=== PATIENT | male | born 1955 | race Caucasian/White ===

== ENCOUNTER 2017-05-03 21:23 | Emergency (ER) | payer OTHER ==
[~2017-05-03] VITALS: Ht 175.3 cm; Wt 105.3 kg
[2017-05-03 22:34] LABS: ASPARTATE AMINO TRANSFERASE 18 U/L (15-37); BLOOD UREA NITROGEN 14 mg/dL (7-18)
[2017-05-03 22:47] VITALS: BP 130/79
== END 2017-05-03 23:44 | disposition home or self-care (01) ==
LOC: ED 22:05
DX: R10.32 Left lower quadrant pain (principal); J01.00 Acute maxillary sinusitis, unspecified; R11.0 Nausea
CPT/HCPCS: 36415; 74176; 80053; 81003; 83690; 85025; 99285

== ENCOUNTER → 2021-06-06 | Outpatient (CLI) | payer OTHER, MEDICARE | END | disposition home or self-care (01) | LOC: CVU 06:39 | PROVIDERS: ATTEND Internal Medicine Cardiovascular Disease | DX: I34.0 Nonrheumatic mitral (valve) insufficiency (principal); I25.10 Atherosclerotic heart disease of native coronary artery without angina pectoris; J84.10 Pulmonary fibrosis, unspecified; I11.9 Hypertensive heart disease without heart failure; R06.02 Shortness of breath | CPT/HCPCS: 75571; 78452; 93017; 93306; 93356; A9502 ==